=== PATIENT | female | born 1945 | race Caucasian/White ===

== ENCOUNTER 2024-05-19 21:08 | Emergency (ER) | payer MEDICARE, OTHER ==
[~2024-05-19] VITALS: Ht 167.6 cm; Wt 74.8 kg
[2024-05-19] MEDS: MORPHINE SULFATE INJ 2 MG/ML DISP.SYRIN IM ONE (22:30)
[2024-05-19] MEDS ORDERED: MORPHINE SULFATE INJ 2 MG/ML DISP.SYRIN ONE (22:37)
[2024-05-19] MEDS ORDERED: KETOROLAC TROMETHAMINE INJ 30 MG/ML VIAL ONE (22:42)
[2024-05-19] MEDS: KETOROLAC TROMETHAMINE INJ 30 MG/ML VIAL IM ONE (22:43)
[2024-05-19] MEDS ORDERED: PROPOFOL 0 ML IV ONE (23:25)
[2024-05-19] MEDS: PROPOFOL 200 MG/20 ML VIAL IV ONE (23:30)
[2024-05-19] MEDS: IV NS 0.9% 500 ML BAG IV ONE (23:30)
[2024-05-19] MEDS ORDERED: PROPOFOL 20 ML IV ONE (23:37)
[2024-05-20 01:07] VITALS: BP 150/63; TEMP 98.2; O2SAT 97
== END 2024-05-20 01:07 ==
LOC: ER 21:16
DX: S43.085A Other dislocation of left shoulder joint, initial encounter (principal); I10 Essential (primary) hypertension; R51.9 Headache, unspecified; R07.9 Chest pain, unspecified; Z86.59 Personal history of other mental and behavioral disorders; W06.XXXA Fall from bed, initial encounter; Y93.89 Activity, other specified; Y92.098 Other place in other non-institutional residence as the place of occurrence of the external cause; Y99.8 Other external cause status
CPT/HCPCS: 99285; 72125; 23650; 71045; 72170; 73030 ×2; 70450; 96372; J2704; J1885; J7040 ×2; J2270